=== PATIENT | female | born 1960 | race Caucasian/White ===

== ENCOUNTER 2016-10-09 23:22 | Emergency (ER) | payer OTHER ==
[~2016-10-09] VITALS: Ht 175.3 cm; Wt 114.3 kg
--- NOTE | 2016-10-10 00:24 | ED GI/GU/ABDOMINAL COMPLAINT ---
History of Present Illness General Chief Complaint: Nausea, Vomiting, Diarrhea Stated Complaint: ABD PAIN,+N/V Source: patient, family Exam Limitations: no limitations Vital Signs & Intake/Output Vital Signs & Intake/Output Vital Signs Date Time Temp Pulse Resp B/P Pulse O2 O2 Flow FiO2 Ox Delivery Rate 10/10 0150 98.0 75 16 130/68 99 10/09 2354 98.5 78 18 138/85 98 Room Air ED Intake and Output 10/10 0000 10/09 1200 Intake Total Output Total Balance Patient 252 lb Weight Allergies Coded Allergies: erythromycin base (Severe, VOMITING 10/10/16) Reconcile Medications Ciprofloxacin HCl (Cipro) 500 MG TABLET 1 TAB PO BID urinary tract infection Ondansetron (Zofran Odt) 4 MG TAB.RAPDIS 1 TAB SL TID PRN nausea Triage Note: PT TO ED C/O RIGHT FLANK PAIN, NAUSEA AND VOMITING SINCE 7 PM. PT REPORTS BEING TREATED FOR UTI FOR PAST TWO WEEKS WITH ANTIBIOTICS. PT WAS SEEN BY HER PRIMARY EARLIER TODAY FOR CONTINUED URINARY FREQUENCY AND CLOUDY URINE. PT DENIES BURNING, HEMATURIA, AND FEVER. Triage Nurses Notes Reviewed? yes ? n Is pt currently ? No Onset: Gradual Duration: day(s): Timing: recent history Quality/Severity: burning, cramping Location: suprapubic Radiation: no radiation Activities at Onset: none Prior Abdominal Problems: none Modifying Factors: Worsens With: palpation, urinating, vomiting. Associated Symptoms: abdominal pain, dysuria, nausea/vomiting, urinary frequency HPI: 55-year-old woman presents with dysuria right lower quadrant pain and polyuria for the past several days. She states that she saw her primary care doctor yesterday. She was diagnosed with a urinary tract infection. She was given prescription for ciprofloxacin but was unable to fill it. Tonight her symptoms worsened. She felt the pain radiating up into her right flank. She also noted low-grade temps. She also had mild nausea and vomited at least once. She is otherwise well. Past History Travel History Traveled to [place] past 21 day No Medical History Any Pertinent Medical History? see below for history Psychiatric: bipolar disease Surgical History Surgical History: appendectomy Psychosocial History Who do you live with Family Services at Home None What is your primary language Pashto Tobacco Use: Never used Family History Family History, If Any: FATHER Relation not specified for: FH: heart attack Hx Contributory? No Review of Systems Review of Systems Constitutional: Reports: no symptoms. EENTM: Reports: no symptoms. Respiratory: Reports: no symptoms. Cardiovascular: Reports: no symptoms. GI: Reports: no symptoms. Genitourinary: Reports: no symptoms. Musculoskeletal: Reports: no symptoms. Skin: Reports: no symptoms. Neurological/Psychological: Reports: no symptoms. Hematologic/Endocrine: Reports: no symptoms. Immunologic/Allergic: Reports: no symptoms. All Other Systems: Reviewed and Negative Physical Exam Physical Exam General Appearance: well developed/nourished, mild distress Head: atraumatic, normal appearance Eyes: Bilateral: normal appearance. Ears, Nose, Throat, Mouth: hearing grossly normal Neck: normal inspection, supple, full range of motion Respiratory: normal breath sounds, chest non-tender, no respiratory distress, quiet respiration, lungs clear Cardiovascular: regular rate/rhythm Gastrointestinal: normal bowel sounds, soft, mild suprapubic and right lower quadrant tenderness. No rebound no guarding. No CVA tenderness Back: no CVA tenderness Extremities: normal range of motion Neurologic/Psych: no motor/sensory deficits, awake, alert, oriented x 3 Skin: intact, normal color, warm/dry Core Measures ACS in differential dx? No Severe Sepsis Present: No Septic Shock Present: No Progress Differential Diagnosis: UTI/pyelo, versus viral syndrome versus other Plan of Care: Orders Procedure Date/time Status Add-on Test (ER Only) 10/10 0035 Active LITHIUM 10/10 0028 Complete URINALYSIS 10/10 0000 Complete TROPONIN LEVEL 10/09 2349 Complete LIPASE 10/09 2349 Complete HEPATIC FUNCTION PANEL 10/09 234 Complete CBC WITHOUT DIFFERENTIAL 10/09 234 Complete BASIC METABOLIC PANEL 10/09 234 Complete AMYLASE 10/09 2349 Complete EKG 10/09 2349 Active Laboratory Tests 10/10/16 0028: Anion Gap 10, Estimated GFR > 60, BUN/Creatinine Ratio 21.7, Glucose 129 H, Calcium 9.7, Total Bilirubin 0.7, Direct Bilirubin 0.4, AST 22, ALT 32, Alkaline Phosphatase 92, Troponin I < 0.01, Total Protein 7.2, Albumin 4.2, Amylase 49, Lipase 112, CBC w Diff MAN DIFF ORDERED, RBC 4.71, MCV 83.4, MCH 27.8, RDW 13.5, MPV 8.5, Gran % 89.8 H, Lymphocytes % 6.9 L, Monocytes % 2.9, Eosinophils % 0.2, Basophils % 0.2, Absolute Granulocytes 16.7 H, Segmented Neutrophils 84 H , Absolute Lymphocytes 1.3, Lymphocytes 11 L, Monocytes 5, Absolute Monocytes 0.5, Absolute Eosinophils 0, Absolute Basophils 0, Platelet Estimate ADEQUATE, Normocytic RBCs VERIFIED, Normochromic RBCs VERIFIED, PUBS MCHC 33.3, Fld Total RBCs Counted 100, [place] 0.5 L 10/10/16 0004: Urine Color YEL, Urine Clarity HAZY H, Urine pH 7.0, Ur Specific [place] 1.020, Urine Protein TRACE H, Urine Ketones 15 H, Urine Nitrite POS H, Urine Bilirubin NEG, Urine Urobilinogen 1.0, Ur Leukocyte Esterase MOD H, Ur Microscopic SEDIMENT EXAMINED, Urine RBC 5-10 H, Urine WBC 25-50 H, Ur Epithelial Cells RARE, Urine Bacteria MOD H, Urine Mucus RARE, Urine Hemoglobin LARGE H, Urine Glucose NEG Initial ED EKG: normal axis, normal intervals, normal p-waves, normal QRS complex Departure Departure Disposition: HOME OR SELF CARE Condition: Stable Clinical Impression Primary Impression: Pyelonephritis Referrals: SAL MYERS MD (PCP/Family) Departure Forms: Customer Survey General Discharge Information Prescriptions: Current Visit Scripts Ciprofloxacin HCl (Cipro) 1 TAB PO BID #20 TAB Ondansetron (Zofran Odt) 1 TAB SL TID PRN nausea #10 TAB Comments Patient feeling better at discharge. Elevated white count and urine suggestive of infection are noted. All results discussed with patient. Patient given ceftriaxone in the emergency department. Patient will complete an extended course of ciprofloxacin. I counseled her to return to the emergency department or see her primary care doctor if not feeling better within 24 hours.
[2016-10-10 00:38] LABS: ABSOLUTE BASOPHIL COUNT 0 /CUMM (0.0-0.2); ABSOLUTE EOSINOPHIL COUNT 0 /CUMM (0.0-0.7); ABSOLUTE GRANULOCYTE CT 16.7 /CUMM (1.4-6.5); ABSOLUTE LYMPH COUNT 1.3 /CUMM (1.2-3.4); ABSOLUTE MONOCYTE COUNT 0.5 /CUMM (0.10-0.60); BASOPHIL % 0.2 % (0.0-2.0); EOSINOPHIL % 0.2 % (0-5); GRANULOCYTE % 89.8 % (42.2-75.2); HEMATOCRIT 39.3 % (37-47); MEAN CORPUSCULAR HGB 27.8 PG (27.0-31.0); MEAN CORPUSCULAR HGB CONC 33.3 G/DL (33.0-37.0); MEAN CORPUSCULAR VOLUME 83.4 FL (81.0-99.0); MEAN PLATELET VOLUME 8.5 FL (7.4-10.4); PLATELET COUNT 388 /CUMM (130-400); RBC DISTRIBUTION WIDTH 13.5 % (11.5-14.5); RED BLOOD CELL CT 4.71 /CUMM (4.20-5.40); WHITE BLOOD CELL COUNT 18.6 /CUMM (4.8-10.8)
[2016-10-10 00:52] LABS: LITHIUM 0.5 mmol/L (0.6-1.2)
[2016-10-10] MEDS ORDERED: ZOFRAN ODT4 M1 SL (01:22)
[2016-10-10] MEDS ORDERED: CIPRO500 M1 PO (01:22)
[2016-10-10 01:50] VITALS: BP 130/68
== END 2016-10-10 01:51 ==
LOC: ERH 23:22
PROVIDERS: Pediatrics
DX: N12 Tubulo-interstitial nephritis, not specified as acute or chronic (principal)
CPT/HCPCS: 81001; 93005; 93010; 96374; 96375; J0696; J1885; J2405